=== PATIENT | female | born 1990 | race Caucasian/White ===

== ENCOUNTER 2017-01-15 04:01 | Inpatient (IN) | payer OTHER ==
[2017-01-15] VITALS (8 sets, daily range): BP systolic 108–158; BP diastolic 64–84; PULSE 61–93; RESP 17–19; Ht 162.6 cm; Wt 71.4 kg
[~2017-01-15] VITALS: Ht 162.6 cm; Wt 71.4 kg
[~2017-01-15 04:01] MED LIST: PRENAT PO
[2017-01-15] MEDS ORDERED: AMPICILLIN 2 GM/NS (PMX) 100 ML ONE (04:17)
[2017-01-15 04:28] LABS: ADD SCAN DIFF NO
[2017-01-15 04:30] LABS: BASOPHIL # 0.1 10^3/ul (0.0-0.1); BASOPHILS % 0.3 % (0.0-2.0); EOSINOPHILS # 0.3 10^3/ul (0.0-0.5); EOSINOPHILS % 2.4 % (0.0-7.0); HEMATOCRIT 29.4 % (37.0-47.0); HEMOGLOBIN 8.7 g/dl (12.0-16.0); LYMPHOCYTES # 2.6 10^3/ul (0.8-2.9); LYMPHOCYTES % 18.4 % (15.0-51.0); MEAN CORPUSCULAR HEMOGLOBIN 20.5 pg (29.0-33.0); MEAN CORPUSCULAR HGB CONC 29.6 g/dl (32.0-37.0); MEAN CORPUSCULAR VOLUME 69.3 fl (82.0-101.0); MEAN PLATELET VOLUME 8.9 fl (7.4-10.4); MONOCYTE # 0.6 10^3/ul (0.3-0.9); MONOCYTES % 4.3 % (0.0-11.0); NEUTROPHIL # 10.6 10^3/ul (1.6-7.5); NEUTROPHILS % 74.1 % (39.0-77.0); NUCLEATED RED BLOOD CELLS% 0.1 /100WBC (0.0-0.0); PLATELET COUNT 345 10^3/UL (140-415); RED BLOOD COUNT 4.24 10^6/ul (4.20-5.40); RED CELL DISTRIBUTION WIDTH 17.2 % (11.5-14.5); WHITE BLOOD COUNT 14.4 10^3/ul (4.8-10.8)
[2017-01-15] MEDS ORDERED: IBUPROFEN 600 MG TAB PO PRN (04:30)
[2017-01-15] MEDS ORDERED: LIDOCAINE 1% (MPF) 30 ML INJ INJ PRN (04:30)
[2017-01-15] MEDS ORDERED: CARBOPROST 250 MCG INJ IM PRN ×2 (04:30→09:30)
[2017-01-15] MEDS ORDERED: METHYLERGONOVINE 0.2 MG INJ IM PRN (04:30)
[2017-01-15] MEDS ORDERED: OXYTOCIN 30 UNITS/LR 500 ML IV PRN ×2 (04:30→09:30)
[2017-01-15] MEDS ORDERED: LACTATED RINGER'S 1,000 ML IV PRN (04:30)
[2017-01-15] MEDS ORDERED: AMPICILLIN 2 GM/NS (PMX) 100 ML IV ONE (04:30)
[2017-01-15] MEDS ORDERED: MISOPROSTOL 200 MCG TAB PR PRN ×2 (04:30→09:30)
[2017-01-15] MEDS ORDERED: BUTORPHANOL 2 MG INJ IV PRN (04:30)
[2017-01-15 04:33] LABS: INR 0.94; PROTIME 12.6 Sec (12.2-14.2)
[2017-01-15 04:34] LABS: PARTIAL THROMBOPLASTIN TIME 26.4 Sec (25.0-35.0)
--- NOTE | 2017-01-15 04:44 | HP ---
Date/Time of Note Date/Time of Note DATE: 01/15/17 TIME: 04:39 OB - History Hx of Present Free Text/Dictation Pt is a 26yo at 38+0wks GA presenting with progressively worsening UCs since 1800. Reports normal FM, denies LOF or VB. States course has been uncomplicated. Hx of uncomplicated x4. On review of records, pt late to care at 20wks GA. PNL all negative and in order except for positive GBS and hx of Anemia with H/H9.4/28.8 in November. Estimated Due Date: Jan 29, 2017 : 5 Para: 4 Care: Good Care Obstetrical Complications: None Medical Complications: Other (Anemia) Past Family/Social History * Past Medical, Surgical, Family and Obstetric Histories reviewed from chart. Blood Type: O+ Rubella: immune RPR/VDRL: Negative GBS Status: Positive HBsAG: Negative OB Admission Exam Vital Signs Vital Signs Vital Signs Date Time Temp Pulse Resp B/P Pulse Ox O2 Delivery O2 Flow Rate FiO2 01/15/17 04:11 97.9 93 18 134/84 Room Air Physical Exam HEENT: WNL Heart: Rhythm Normal Lungs: Clear Abdomen: WNL Extremities: Normal Cervical Dilatation: 6cm Effacement: Other (90%) Station: -2 Membranes: Intact (BBOW) Heart Rate: 120's Accelerations: Accelerations Present Decelerations: No Decelerations Varibility: Moderate Contractions on Admission: < 5 Minutes Apart Last 72 hours Lab Results CBC & BMP 01/15/17 04:13 OB Assessment/Plan Reason for admission: active labor, group B positive strep Plan: Expectant Management Other plan: FWB reassuring Ampicillin for GBS ppx Stadol for immediate pain relief followed by Epidural once admission labs result Utox given pt late to care Anticipate ANDI POOLE MD Jan 15, 2017 04:44
[2017-01-15] MEDS ORDERED: FENTAnyl 2MCG/ML-ROPIV 0.2% 100 ML ONE (05:00)
[2017-01-15] MEDS ORDERED: OXYTOCIN 30 UNITS/LR 500 ML IV SCH (05:30)
[2017-01-15] MEDS: LACTATED RINGER'S 1,000 ML IV SCH ×2 (05:38→12:20)
[2017-01-15] MEDS ORDERED: AMPICILLIN 1 GM/NS (PMX) 50 ML IV SCH (08:30)
[2017-01-15] MEDS: OXYTOCIN 30 UNITS/LR 500 ML IV SCH ×2 (08:36→09:35)
[2017-01-15] MEDS ORDERED: FENTAnyl 2MCG/ML-ROPIV 0.2% 100 ML BAG EPI SCH (09:00)
[2017-01-15] MEDS ORDERED: NALOXONE (0.4 MG/ML) INJ IV PRN (09:00)
[2017-01-15] MEDS ORDERED: LACTATED RINGER'S 1,000 ML IV* SCH (09:22)
--- NOTE | 2017-01-15 09:29 | LDN ---
Date/Time of Note Date/Time of Note DATE: 01/15/17 TIME: 09:24 Delivery Summary with IUP at 38 weeks who was admitted in labor and had good working epidural. s/p of viable male with APGARS of 9/9 and EBL 300 and 1st degree perineal laceration was repaired with 4-0 Chromic on SH needle. the placenta delivered spontaneously but there was some retained membranes that was delivered with Ring Forceps. Placenta Delivered: Spontaneously Meconium: none Episiotomy: No Perineal laceration: 1 Laceration repair: first degree perineal Anesthesia type: Epidural Estimated blood loss: 300 Sponge & Needle done & correct: Yes All needle counts correct: Yes Any foreign bodies felt in the: No Problems: Infant Delivery Information Sex Infant Sex: male Apgars 1 Minute: 9 5 Minute: 9 Suctioning Nose & mouth suctioned at estee: No Delee suction performed: No Umbilical Cord Umbilical cord with: 3 Vessels Cord presentations: no nuchal cord Cord Blood was obtained: Yes Mother & Baby Disposition Disposition Mom & Baby to Maternity; Good: Yes GELACIO ALVARENGA MD Jan 15, 2017 09:29
[2017-01-15] MEDS ORDERED: MAGNESIUM HYDROXIDE 30ML CUP PO PRN (09:30)
[2017-01-15] MEDS ORDERED: SENNA/DOCUSATE NA (8.6MG/50MG) TAB PO PRN (09:30)
[2017-01-15] MEDS ORDERED: NA PHOSPHATE/BIPHOS 133 ML ENEMA PR PRN (09:30)
[2017-01-15] MEDS ORDERED: DIPHENHYDRAMINE 50 MG INJ IV PRN (09:30)
[2017-01-15] MEDS ORDERED: ACETAMINOPHEN/CODEINE #3 TAB PO PRN ×2 (09:30)
[2017-01-15] MEDS ORDERED: DIPHENHYDRAMINE 25 MG CAP PO PRN (09:30)
[2017-01-15] MEDS ORDERED: LANOLIN 7 GM TUBE TOP PRN (09:30)
[2017-01-15] MEDS ORDERED: ONDANSETRON 4 MG TAB PO PRN (09:30)
[2017-01-15] MEDS ORDERED: ONDANSETRON 4 MG INJ IV PRN (09:30)
[2017-01-15] MEDS ORDERED: DIBUCAINE 1% 30 GM OINT PR PRN (09:30)
[2017-01-15] MEDS: BENZOCAINE 20% 56 ML SPRAY TOP PRN (12:14)
[2017-01-15] MEDS: WITCH HAZEL/GLYCERIN PAD PR PRN (12:14)
[2017-01-15] MEDS: IBUPROFEN 600 MG TAB PO SCH ×3 (12:15→23:41)
[2017-01-15] MEDS: SENNA/DOCUSATE NA (8.6MG/50MG) TAB PO SCH (20:51)
[2017-01-16 00:05] VITALS: BP 118/76; PULSE 81; RESP 19
[2017-01-16 04:00] VITALS: BP 109/57; PULSE 71; RESP 18
[2017-01-16] MEDS: IBUPROFEN 600 MG TAB PO SCH ×4 (05:33→23:41)
[2017-01-16 08:00] VITALS: BP 126/76; PULSE 81; RESP 18
[2017-01-16 08:50] LABS: ADD SCAN DIFF NO
[2017-01-16 08:59] LABS: ABNORMAL IP MESSAGE 1; BASOPHIL # 0.1 10^3/ul (0.0-0.1); BASOPHILS % 0.6 % (0.0-2.0); EOSINOPHILS # 0.4 10^3/ul (0.0-0.5); EOSINOPHILS % 4.3 % (0.0-7.0); HEMATOCRIT 27.7 % (37.0-47.0); LYMPHOCYTES # 2.6 10^3/ul (0.8-2.9); LYMPHOCYTES % 25.9 % (15.0-51.0); MEAN CORPUSCULAR HEMOGLOBIN 20.4 pg (29.0-33.0); MEAN CORPUSCULAR HGB CONC 28.9 g/dl (32.0-37.0); MEAN CORPUSCULAR VOLUME 70.7 fl (82.0-101.0); MEAN PLATELET VOLUME 9.2 fl (7.4-10.4); MONOCYTE # 0.6 10^3/ul (0.3-0.9); MONOCYTES % 5.4 % (0.0-11.0); NEUTROPHIL # 6.5 10^3/ul (1.6-7.5); NEUTROPHILS % 63.4 % (39.0-77.0); NUCLEATED RED BLOOD CELLS% 0.3 /100WBC (0.0-0.0); PLATELET COUNT 301 10^3/UL (140-415); RED BLOOD COUNT 3.92 10^6/ul (4.20-5.40); RED CELL DISTRIBUTION WIDTH 17.3 % (11.5-14.5); WHITE BLOOD COUNT 10.2 10^3/ul (4.8-10.8)
[2017-01-16] MEDS: SENNA/DOCUSATE NA (8.6MG/50MG) TAB PO SCH ×2 (09:15→21:25)
[2017-01-16] MEDS: WITCH HAZEL/GLYCERIN PAD PR PRN (14:08)
[2017-01-16] MEDS: BENZOCAINE 20% 56 ML SPRAY TOP PRN (14:08)
[2017-01-16 16:00] VITALS: BP 115/70; PULSE 84; RESP 18
[2017-01-16 19:50] VITALS: BP 129/68; PULSE 84; RESP 18
--- NOTE | 2017-01-16 22:11 | PN ---
Date/Time of Note Date/Time of Note DATE: 01/16/17 TIME: 22:10 OB Subjective Subjective Subjective no c/o OB Objective Objective Objective vss afebrile fundus firm lochia min calf neg for tenderness OB Assessment/Plan Other Assessment: sable postvaginal delivery1 Other plan: d/shome in am REDDY QUIROZ MD Jan 16, 2017 22:11
[2017-01-17 03:40] VITALS: BP 107/69; PULSE 69; RESP 19
[2017-01-17] MEDS: IBUPROFEN 600 MG TAB PO SCH ×2 (05:40→12:00)
[2017-01-17 08:00] VITALS: BP 115/67; PULSE 76; RESP 17
[2017-01-17] MEDS ORDERED: DIPHTH/TET/ACEL PERTUSS (ADULT) 0.5 ML VIAL IM* ONE (09:00)
[2017-01-17] MEDS ORDERED: MEASLES,MUMPS,RUBELLA VACCINE INJ SC* ONE (09:00)
[2017-01-17] MEDS ORDERED: VARICELLA VACCINE LIVE/PF 1,350 UNIT/0.5 ML ML SC* ONE (09:00)
[2017-01-17] MEDS ORDERED: FERROUS GLUCONATE (EC) 325 MG TAB PO SCH (09:00)
[2017-01-17] MEDS: SENNA/DOCUSATE NA (8.6MG/50MG) TAB PO SCH (09:26)
--- NOTE | 2017-01-18 08:53 | DS ---
Date/Time of Note Date/Time of Note DATE: 01/18/17 TIME: 08:52 Obstetrical Discharge Record Final Diagnosis Final Diagnosis: Term delivered Vaginal Delivery Obstetrical Delivery: Spontaneous Complications Augmentation: No Induction: No Rupture of Membranes: No Condition on Discharge Physical Assessment Voiding: Yes Bowel Movement: Yes Breast: Soft, non-tender, Filling Fundus: Firm Abdomen and Incision: firm and not tender and fundus 2 cm below umbilicus Calf Tenderness: No Patient Condition: Good GELACIO ALVARENGA MD Jan 18, 2017 08:53
== END 2017-01-17 15:33 | disposition home or self-care (01) | DRG 775 ==
LOC: OBT 04:01 → L-D 04:01 → OBT 04:25 → L-D 04:25 → PP1 10:27
PROVIDERS: ADMIT Specialist; ATTEND Specialist
PROC: 10E0XZZ Delivery of Products of Conception, External Approach (ICD-10-PCS; principal; 2017-01-15)
PROC: 0HQ9XZZ Repair Perineum Skin, External Approach (ICD-10-PCS; 2017-01-15)
DX: O70.0 First degree perineal laceration during delivery (principal); Z37.0 Single live birth; Z3A.38 38 weeks gestation of pregnancy
CPT/HCPCS: 62319; 85025; 85610; 85730; 86592; 86900; 86901; 87340; 90715; 90716; C1751; G0463; J0290; J2590; J3010; J7120

== ENCOUNTER 2018-03-22 13:21 | Outpatient (CLI) | END 2018-03-22 14:40 | disposition home or self-care (01) ==

== ENCOUNTER 2018-04-24 16:45 | Inpatient (IN) | END 2018-04-25 20:10 | disposition home or self-care (01) | DRG 781 ==

== ENCOUNTER 2018-05-03 06:40 | Outpatient (CLI) | END 2018-05-03 08:15 | disposition home or self-care (01) ==